=== PATIENT | male | born 1965 | race Caucasian/White ===

== ENCOUNTER 2018-04-23 03:26 | Inpatient (IN) | payer OTHER ==
[2018-04-23] VITALS (7 sets, daily range): BP systolic 140–156; BP diastolic 83–104
[~2018-04-23] VITALS: Ht 188 cm; Wt 117.0 kg
[2018-04-23] MEDS ORDERED: METOCLOPRAMIDE 5 MG/ML, 2ML ONE (03:40)
[2018-04-23] MEDS ORDERED: MORPHINE SULFATE 4 MG/ML, 1ML ONE ×2 (03:40→06:16)
[2018-04-23] MEDS: MORPHINE SULFATE 4 MG/ML, 1ML IVPush PRN ×4 (03:46→17:30)
[2018-04-23] MEDS ORDERED: METOCLOPRAMIDE 5 MG/ML, 2ML IVPush ONE (04:00)
[2018-04-23 04:07] LABS: BASOPHILS # (AUTO) 0.02 x10^3/uL (0-0.1); BASOPHILS % (AUTO) 0 % (0-1); EOSINOPHILS # (AUTO) 0.18 x10^3/uL (0-0.4); EOSINOPHILS % (AUTO) 3 % (1-7); LYMPHOCYTES % (AUTO) 32 % (22-44); MD NO; MEAN CORPUSCULAR HEMOGLOBIN 32.2 pg (27.5-34.5); MEAN CORPUSCULAR HGB CONC 34.8 g/dL (33.2-36.2); MEAN CORPUSCULAR VOLUME 92.3 fL (81-97); MEAN PLATELET VOLUME 10.2 fL (7.4-10.4); MONOCYTES # (AUTO) 0.69 x10^3/uL (0.2-0.8); MONOCYTES % (AUTO) 11 % (2-9); NEUTROPHILS # (AUTO) 3.43 x10^3/uL (1.8-6.8); NEUTROPHILS % (AUTO) 54 % (42-75); PLATELET COUNT 203 x10^3/uL (130-400); RED BLOOD COUNT 4.66 x10^6/uL (4.38-5.82); RED CELL DISTRIBUTION WIDTH 13.1 % (9.4-14.8)
[2018-04-23 04:13] LABS: ALANINE AMINOTRANSFERASE 36 U/L (12-78); ALBUMIN 4.1 g/dL (3.4-5.0); ANION GAP 10 mmol/L (5-15); CALCIUM 8.7 mg/dL (8.5-10.1); CHLORIDE 106 mmol/L (98-107); CREATININE 1.21 mg/dL (0.7-1.3)
[2018-04-23 04:17] LABS: BILIRUBIN,TOTAL 0.5 mg/dL (0.2-1.0); TOTAL PROTEIN 7.5 g/dL (6.4-8.2); TROPONIN I < 0.015 ng/mL (0.000-0.045)
[2018-04-23 04:28] LABS: ALKALINE PHOSPHATASE 51 U/L (45-117)
[2018-04-23] MEDS ORDERED: hydrALAzine 20 MG/ML, 1ML ONE (04:49)
[2018-04-23] MEDS ORDERED: OMNIPAQUE 350 MG/ML, 100ML BOTTLE ONE (04:55)
[2018-04-23] MEDS ORDERED: hydrALAzine 20 MG/ML, 1ML IV ONE (05:00)
[2018-04-23] MEDS ORDERED: HEPARIN 5,000 UNITS/ML, 1ML IV ONE (06:00)
[2018-04-23] MEDS ORDERED: HEPARIN 25,000 UNITS/500ML PMX 500 ML ONE (06:02)
[2018-04-23] MEDS ORDERED: HEPARIN 5,000 UNITS/ML, 1ML ONE (06:02)
[2018-04-23 06:05] LABS: MICROSCOPIC NOT IND
[2018-04-23 06:23] LABS: INTERNATIONAL NORMALIZED RATIO 0.98 (0.93-1.1); PROTHROMBIN TIME 10.2 Seconds (9.6-11.5)
[2018-04-23] MEDS ORDERED: SODIUM CHLORIDE 0.9% 1,000 ML IV ONE (06:23)
[2018-04-23] MEDS: HEPARIN 25,000 UNITS/500ML PMX 500 ML IV PRN (06:29)
[2018-04-23 06:36] LABS: CULTURE INDICATED? NO
[2018-04-23] MEDS ORDERED: ONDANSETRON 2MG/ML, 2ML IVPush PRN (07:30)
[2018-04-23] MEDS ORDERED: morphine SULFATE 10 MG/ML, 1ML IVPush PRN (07:30)
[2018-04-23] MEDS ORDERED: LABETALOL 5MG/ML, 20ML IVPush PRN (07:30)
[2018-04-23] MEDS ORDERED: NS + 20MEQ KCL 1,000 ML IV SCH (08:00)
[2018-04-23] MEDS: CARVEDILOL 6.25 MG TABLET PO SCH ×2 (10:52→17:29)
[2018-04-23] MEDS: LABETALOL 5MG/ML, 20ML IVPush PRN ×3 (11:58→14:38)
[2018-04-23] MEDS: HEPARIN 5,000 UNITS/ML, 1ML IV PRN (15:03)
[2018-04-23] MEDS: hydrALAzine 20 MG/ML, 1ML IV PRN (16:01)
[2018-04-23] MEDS ORDERED: CARVEDILOL 3.125 MG TABLET PO SCH (18:00)
[2018-04-24] MEDS: LABETALOL 5MG/ML, 20ML IVPush PRN ×2 (00:23→22:54)
[2018-04-24] MEDS: HEPARIN 25,000 UNITS/500ML PMX 500 ML IV PRN ×2 (01:26→17:45)
[2018-04-24 02:04] LABS: BASOPHILS # (AUTO) 0.02 x10^3/uL (0-0.1); BASOPHILS % (AUTO) 0 % (0-1); EOSINOPHILS # (AUTO) 0.14 x10^3/uL (0-0.4); EOSINOPHILS % (AUTO) 2 % (1-7); LYMPHOCYTES # (AUTO) 1.73 x10^3/uL (1-3.4); LYMPHOCYTES % (AUTO) 21 % (22-44); MD NO; MEAN CORPUSCULAR HGB CONC 34.2 g/dL (33.2-36.2); MEAN CORPUSCULAR VOLUME 93.6 fL (81-97); MEAN PLATELET VOLUME 10.4 fL (7.4-10.4); MONOCYTES # (AUTO) 0.82 x10^3/uL (0.2-0.8); MONOCYTES % (AUTO) 10 % (2-9); NEUTROPHILS # (AUTO) 5.51 x10^3/uL (1.8-6.8); NEUTROPHILS % (AUTO) 67 % (42-75); PLATELET COUNT 209 x10^3/uL (130-400); RED BLOOD COUNT 4.41 x10^6/uL (4.38-5.82); RED CELL DISTRIBUTION WIDTH 14.2 % (9.4-14.8)
[2018-04-24 02:12] LABS: ANION GAP 10 mmol/L (5-15); CALCIUM 8.2 mg/dL (8.5-10.1); CHLORIDE 108 mmol/L (98-107); CREATININE 1.04 mg/dL (0.7-1.3)
[2018-04-24] MEDS: HEPARIN 5,000 UNITS/ML, 1ML IV PRN ×2 (03:26→15:45)
[2018-04-24] MEDS: CARVEDILOL 6.25 MG TABLET PO SCH (06:09)
[2018-04-24 11:01] LABS: INTERNATIONAL NORMALIZED RATIO 1.04 (0.93-1.1); PROTHROMBIN TIME 10.8 Seconds (9.6-11.5)
[2018-04-24] MEDS: WARFARIN MODERAT DOSE PROTOCOL XX SCH (11:10)
[2018-04-24] MEDS: hydrALAzine 20 MG/ML, 1ML IV PRN (13:34)
[2018-04-24] MEDS: CARVEDILOL 12.5 MG TABLET PO SCH (17:42)
[2018-04-24] MEDS ORDERED: WARFARIN 7.5 MG TABLET PO-COUM ONE (18:00)
[2018-04-25] MEDS: LABETALOL 5MG/ML, 20ML IVPush PRN (01:17)
[2018-04-25 04:42] LABS: BASOPHILS # (AUTO) 0.03 x10^3/uL (0-0.1); BASOPHILS % (AUTO) 0 % (0-1); EOSINOPHILS % (AUTO) 3 % (1-7); LYMPHOCYTES # (AUTO) 1.82 x10^3/uL (1-3.4); LYMPHOCYTES % (AUTO) 25 % (22-44); MD NO; MEAN CORPUSCULAR HEMOGLOBIN 32.3 pg (27.5-34.5); MEAN CORPUSCULAR HGB CONC 34.4 g/dL (33.2-36.2); MEAN CORPUSCULAR VOLUME 93.8 fL (81-97); MEAN PLATELET VOLUME 10.3 fL (7.4-10.4); MONOCYTES # (AUTO) 0.68 x10^3/uL (0.2-0.8); MONOCYTES % (AUTO) 9 % (2-9); NEUTROPHILS # (AUTO) 4.56 x10^3/uL (1.8-6.8); NEUTROPHILS % (AUTO) 63 % (42-75); PLATELET COUNT 192 x10^3/uL (130-400); RED BLOOD COUNT 4.33 x10^6/uL (4.38-5.82); RED CELL DISTRIBUTION WIDTH 13.7 % (9.4-14.8)
[2018-04-25 04:52] LABS: ALBUMIN 3.6 g/dL (3.4-5.0); CHLORIDE 109 mmol/L (98-107)
[2018-04-25 04:55] LABS: HEMOGLOBIN A1C 5.1 % (4.2-6.3)
[2018-04-25 05:01] LABS: ALANINE AMINOTRANSFERASE 30 U/L (12-78); ALKALINE PHOSPHATASE 49 U/L (45-117); ANION GAP 10 mmol/L (5-15); BILIRUBIN,TOTAL 0.7 mg/dL (0.2-1.0); CALCIUM 8.3 mg/dL (8.5-10.1); CHOL/HDL RATIO 3.3; CHOLESTEROL, TOTAL 164 mg/dL (140-239); CREATININE 1.06 mg/dL (0.7-1.3); HDL CHOL % 30 % (26-37); HDL CHOLESTEROL (DIRECT) 49 mg/dL (40-60); LDL CHOLESTEROL,CALCULATED 85 mg/dL (54-169); LDL/HDL RATIO 1.7 (0.5-3.0); TOTAL PROTEIN 6.7 g/dL (6.4-8.2); TRIGLYCERIDES 149 mg/dL (50-200); VLDL CHOLESTEROL 30 mg/dL (0-25)
[2018-04-25 05:44] LABS: INTERNATIONAL NORMALIZED RATIO 1.03 (0.93-1.1); PROTHROMBIN TIME 10.7 Seconds (9.6-11.5)
[2018-04-25] MEDS: CARVEDILOL 12.5 MG TABLET PO SCH ×2 (06:13→17:52)
[2018-04-25] MEDS: HEPARIN 25,000 UNITS/500ML PMX 500 ML IV PRN ×2 (06:35→20:05)
[2018-04-25] MEDS: LISINOPRIL 10 MG TABLET PO SCH ×2 (11:43→20:45)
[2018-04-25] MEDS: WARFARIN MODERAT DOSE PROTOCOL XX SCH (11:50)
[2018-04-25] MEDS ORDERED: WARFARIN 7.5 MG TABLET PO-COUM ONE (18:00)
[2018-04-26 04:18] LABS: BASOPHILS # (AUTO) 0.03 x10^3/uL (0-0.1); BASOPHILS % (AUTO) 1 % (0-1); EOSINOPHILS # (AUTO) 0.22 x10^3/uL (0-0.4); EOSINOPHILS % (AUTO) 3 % (1-7); LYMPHOCYTES # (AUTO) 1.88 x10^3/uL (1-3.4); LYMPHOCYTES % (AUTO) 27 % (22-44); MD NO; MEAN CORPUSCULAR HGB CONC 34.1 g/dL (33.2-36.2); MEAN CORPUSCULAR VOLUME 93.7 fL (81-97); MEAN PLATELET VOLUME 10.1 fL (7.4-10.4); MONOCYTES % (AUTO) 10 % (2-9); NEUTROPHILS # (AUTO) 4.11 x10^3/uL (1.8-6.8); NEUTROPHILS % (AUTO) 59 % (42-75); PLATELET COUNT 190 x10^3/uL (130-400); RED BLOOD COUNT 4.29 x10^6/uL (4.38-5.82); RED CELL DISTRIBUTION WIDTH 13.6 % (9.4-14.8)
[2018-04-26 04:27] LABS: INTERNATIONAL NORMALIZED RATIO 1.03 (0.93-1.1); PROTHROMBIN TIME 10.7 Seconds (9.6-11.5)
[2018-04-26 04:30] LABS: ANION GAP 8 mmol/L (5-15); CALCIUM 8.1 mg/dL (8.5-10.1); CHLORIDE 109 mmol/L (98-107)
[2018-04-26 04:31] LABS: CREATININE 1.09 mg/dL (0.7-1.3)
[2018-04-26] MEDS: CARVEDILOL 12.5 MG TABLET PO SCH ×2 (06:20→18:16)
[2018-04-26] MEDS: LISINOPRIL 10 MG TABLET PO SCH (09:10)
[2018-04-26] MEDS: WARFARIN MODERAT DOSE PROTOCOL XX SCH (11:08)
[2018-04-26] MEDS: HEPARIN 25,000 UNITS/500ML PMX 500 ML IV PRN (11:30)
[2018-04-26] MEDS ORDERED: LISINOPRIL 10 MG TABLET PO ONE (12:00)
[2018-04-26] MEDS ORDERED: ACETAMINOPHEN 325 MG TABLET ONE (16:22)
[2018-04-26] MEDS ORDERED: ACETAMINOPHEN 325 MG TABLET PO PRN (16:30)
[2018-04-26] MEDS ORDERED: WARFARIN 7.5 MG TABLET PO-COUM ONE (18:00)
[2018-04-26] MEDS: LISINOPRIL 20 MG TABLET PO SCH (20:03)
[2018-04-27] MEDS: HEPARIN 25,000 UNITS/500ML PMX 500 ML IV PRN ×2 (00:28→13:37)
[2018-04-27] MEDS: hydrALAzine 20 MG/ML, 1ML IV PRN ×3 (03:05→23:35)
[2018-04-27 04:23] LABS: BASOPHILS # (AUTO) 0.03 x10^3/uL (0-0.1); BASOPHILS % (AUTO) 0 % (0-1); EOSINOPHILS # (AUTO) 0.23 x10^3/uL (0-0.4); EOSINOPHILS % (AUTO) 3 % (1-7); LYMPHOCYTES # (AUTO) 1.82 x10^3/uL (1-3.4); LYMPHOCYTES % (AUTO) 27 % (22-44); MD NO; MEAN CORPUSCULAR HEMOGLOBIN 31.5 pg (27.5-34.5); MEAN CORPUSCULAR HGB CONC 33.9 g/dL (33.2-36.2); MEAN PLATELET VOLUME 10.5 fL (7.4-10.4); MONOCYTES # (AUTO) 0.72 x10^3/uL (0.2-0.8); MONOCYTES % (AUTO) 11 % (2-9); NEUTROPHILS # (AUTO) 3.87 x10^3/uL (1.8-6.8); NEUTROPHILS % (AUTO) 58 % (42-75); PLATELET COUNT 197 x10^3/uL (130-400); RED BLOOD COUNT 4.29 x10^6/uL (4.38-5.82); RED CELL DISTRIBUTION WIDTH 13.4 % (9.4-14.8)
[2018-04-27 04:35] LABS: INTERNATIONAL NORMALIZED RATIO 1.04 (0.93-1.1); PROTHROMBIN TIME 10.8 Seconds (9.6-11.5)
[2018-04-27 04:36] LABS: ANION GAP 9 mmol/L (5-15); CALCIUM 8.4 mg/dL (8.5-10.1); CHLORIDE 109 mmol/L (98-107); CREATININE 1.17 mg/dL (0.7-1.3)
[2018-04-27] MEDS: CARVEDILOL 12.5 MG TABLET PO SCH ×2 (06:00→17:04)
[2018-04-27] MEDS: HEPARIN 5,000 UNITS/ML, 1ML IV PRN (06:02)
[2018-04-27] MEDS: WARFARIN MODERAT DOSE PROTOCOL XX SCH (09:04)
[2018-04-27] MEDS: LISINOPRIL 20 MG TABLET PO SCH ×2 (09:04→21:14)
[2018-04-27 12:13] VITALS: BP 113/74
[2018-04-27 17:03] VITALS: BP 133/83
[2018-04-27] MEDS ORDERED: WARFARIN 10 MG TABLET PO-COUM ONE (18:00)
[2018-04-27 18:58] VITALS: BP 154/87
[2018-04-27 19:43] VITALS: BP 120/78
[2018-04-27 23:31] VITALS: BP 134/81
[2018-04-28] VITALS (14 sets, daily range): BP systolic 92–141; BP diastolic 58–88
[2018-04-28] MEDS: HEPARIN 25,000 UNITS/500ML PMX 500 ML IV PRN ×2 (01:48→14:31)
[2018-04-28] MEDS: LABETALOL 5MG/ML, 20ML IVPush PRN ×2 (02:10→17:38)
[2018-04-28] MEDS: hydrALAzine 20 MG/ML, 1ML IV PRN ×2 (04:03→23:26)
[2018-04-28 05:02] LABS: BASOPHILS # (AUTO) 0.02 x10^3/uL (0-0.1); BASOPHILS % (AUTO) 0 % (0-1); EOSINOPHILS # (AUTO) 0.19 x10^3/uL (0-0.4); EOSINOPHILS % (AUTO) 3 % (1-7); LYMPHOCYTES # (AUTO) 1.64 x10^3/uL (1-3.4); LYMPHOCYTES % (AUTO) 25 % (22-44); MD NO; MEAN CORPUSCULAR HEMOGLOBIN 31.5 pg (27.5-34.5); MEAN CORPUSCULAR HGB CONC 33.9 g/dL (33.2-36.2); MEAN CORPUSCULAR VOLUME 92.8 fL (81-97); MEAN PLATELET VOLUME 10.7 fL (7.4-10.4); MONOCYTES # (AUTO) 0.75 x10^3/uL (0.2-0.8); MONOCYTES % (AUTO) 11 % (2-9); NEUTROPHILS # (AUTO) 3.99 x10^3/uL (1.8-6.8); NEUTROPHILS % (AUTO) 61 % (42-75); PLATELET COUNT 189 x10^3/uL (130-400); RED BLOOD COUNT 4.23 x10^6/uL (4.38-5.82); RED CELL DISTRIBUTION WIDTH 13.7 % (9.4-14.8)
[2018-04-28 05:09] LABS: INTERNATIONAL NORMALIZED RATIO 1.12 (0.93-1.1); PROTHROMBIN TIME 11.6 Seconds (9.6-11.5)
[2018-04-28 05:14] LABS: ANION GAP 10 mmol/L (5-15); CALCIUM 8.2 mg/dL (8.5-10.1); CHLORIDE 110 mmol/L (98-107); CREATININE 1.03 mg/dL (0.7-1.3)
[2018-04-28] MEDS: CARVEDILOL 12.5 MG TABLET PO SCH ×2 (05:55→17:32)
[2018-04-28] MEDS: LISINOPRIL 20 MG TABLET PO SCH ×2 (08:34→21:09)
[2018-04-28] MEDS: WARFARIN MODERAT DOSE PROTOCOL XX SCH (10:46)
[2018-04-28] MEDS ORDERED: CARVEDILOL 6.25 MG TABLET ONE (17:29)
[2018-04-28] MEDS ORDERED: WARFARIN 5 MG TABLET PO-COUM ONE (18:00)
[2018-04-28] MEDS ORDERED: WARFARIN 7.5 MG TABLET PO-COUM SCH (18:00)
[2018-04-29] VITALS (10 sets, daily range): BP systolic 102–143; BP diastolic 66–90
[2018-04-29] MEDS: HEPARIN 25,000 UNITS/500ML PMX 500 ML IV PRN (03:07)
[2018-04-29] MEDS: CARVEDILOL 12.5 MG TABLET PO SCH ×2 (06:37→18:40)
[2018-04-29 07:48] LABS: INTERNATIONAL NORMALIZED RATIO 1.18 (0.93-1.1); PROTHROMBIN TIME 12.2 Seconds (9.6-11.5)
[2018-04-29] MEDS: LISINOPRIL 20 MG TABLET PO SCH ×2 (08:41→20:10)
[2018-04-29] MEDS ORDERED: HEPARIN 25,000 UNITS/500ML PMX 500 ML IV PRN (12:00)
[2018-04-29] MEDS ORDERED: HEPARIN 5,000 UNITS/ML, 1ML IV PRN (12:00)
[2018-04-29] MEDS ORDERED: WARFARIN 10 MG TABLET PO-COUM SCH (18:00)
[2018-04-29] MEDS ORDERED: CARVEDILOL 6.25 MG TABLET ONE (18:28)
[2018-04-29] MEDS: hydrALAzine 20 MG/ML, 1ML IV PRN (18:49)
[2018-04-29] MEDS: LABETALOL 5MG/ML, 20ML IVPush PRN (20:09)
[2018-04-29] MEDS: ENOXAPARIN 120MG/0.8ML SQ SCH (20:10)
[2018-04-30 00:10] VITALS: BP 110/69
[2018-04-30 03:52] VITALS: BP 128/76
[2018-04-30] MEDS: LABETALOL 5MG/ML, 20ML IVPush PRN (03:59)
[2018-04-30 05:23] LABS: INTERNATIONAL NORMALIZED RATIO 1.24 (0.93-1.1); PROTHROMBIN TIME 12.7 Seconds (9.6-11.5)
[2018-04-30] MEDS ORDERED: CARVEDILOL 6.25 MG TABLET ONE (06:44)
[2018-04-30] MEDS: CARVEDILOL 12.5 MG TABLET PO SCH (06:49)
[2018-04-30 06:50] VITALS: BP 134/82
[2018-04-30 08:20] VITALS: BP 96/58
[2018-04-30] MEDS: ENOXAPARIN 120MG/0.8ML SQ SCH (08:23)
[2018-04-30] MEDS ORDERED: LISINOPRIL 10 MG TABLET PO SCH (09:00)
[2018-04-30] MEDS ORDERED: CLON0.1T PO (11:11)
[2018-04-30] MEDS ORDERED: HYDR-3343 PO (11:11)
[2018-04-30] MEDS ORDERED: LISI-167 PO (11:11)
[2018-04-30] MEDS ORDERED: ENOX120S4 SQ (11:11)
[2018-04-30] MEDS ORDERED: WARF5TAB PO-COUM (11:11)
[2018-04-30] MEDS ORDERED: CARV12.543 PO (11:14)
[2018-04-30 12:10] VITALS: BP 120/74
[2018-04-30 13:30] VITALS: BP 112/72
[2018-04-30] MEDS ORDERED: WARFARIN 5 MG TABLET PO-COUM SCH (18:00)
== END 2018-04-30 15:41 | disposition home or self-care (01) | DRG 299 ==
LOC: ED 06:37 → EDIP 06:48 → 3NE 07:59 → CCU 17:07 → 4NOR 04-27 12:03
PROVIDERS: ADMIT Internal Medicine; ATTEND Internal Medicine
PROC: 5A09357 Assistance with Respiratory Ventilation, Less than 24 Consecutive Hours, Continuous Positive Airway Pressure (ICD-10-PCS; principal; 2018-04-26)
PROC: 5A09357 Assistance with Respiratory Ventilation, Less than 24 Consecutive Hours, Continuous Positive Airway Pressure (ICD-10-PCS; 2018-04-27)
PROC: 5A09357 Assistance with Respiratory Ventilation, Less than 24 Consecutive Hours, Continuous Positive Airway Pressure (ICD-10-PCS; 2018-04-28)
PROC: 5A09357 Assistance with Respiratory Ventilation, Less than 24 Consecutive Hours, Continuous Positive Airway Pressure (ICD-10-PCS; 2018-04-29)
PROC: 5A09357 Assistance with Respiratory Ventilation, Less than 24 Consecutive Hours, Continuous Positive Airway Pressure (ICD-10-PCS; 2018-04-30)
DX: I74.8 Embolism and thrombosis of other arteries (principal); I77.79 Dissection of other specified artery; I77.4 Celiac artery compression syndrome; D68.8 Other specified coagulation defects; E66.9 Obesity, unspecified; E87.6 Hypokalemia; G47.33 Obstructive sleep apnea (adult) (pediatric); R73.9 Hyperglycemia, unspecified; I10 Essential (primary) hypertension; Z79.899 Other long term (current) drug therapy; T50.905A Adverse effect of unspecified drugs, medicaments and biological substances, initial encounter; Y92.89 Other specified places as the place of occurrence of the external cause
CPT/HCPCS: 0399T; 36415; 74177; 80048; 80053; 80061; 81003; 81241; 82962; 83036; 83605; 83690; 83735; 84100; 84484; 85025; 85303; 85306; 85520; 85598; 85610; 85613; 85670; 85730; 85732; 86146; 86147; 86677; 87081; 93005; 93306; 94660; 96374; 96375; 99291; G0378; J1644; J1650; J3480; Q9967; J0360; J2270; J2765; J7050